=== PATIENT | female | born 1950 | race Caucasian/White ===

== ENCOUNTER 2023-12-15 03:28 | Inpatient (IN) | payer MEDICARE, OTHER, SELFPAY ==
[2023-12-14 21:21] VITALS: BP 185/102
--- NOTE | 2023-12-14 21:35 | ED.GENMED ---
History of Present Illness
General
Chief Complaint: Abdominal Pain
Time Seen by Provider: 12/14/23 21:35
Travel History
Have you had any contact with someone who has COVID-19?: No
Do you have any symptoms of coronavirus? Fever > 100 degrees, chills, cough, shortness of breath, sore throat, loss of taste or smell, muscle aches, or headache?: No
History of Present Illness
History of Present Illness:
HPI: Patient presents with diffuse abdominal pain that started about 5 hours ago. This is associated with sensation of needing to have a bowel movement but she cannot. She also has associated severe nausea/dry heaves but has not vomited. She has
not had pain like this. She had no symptoms earlier in the day.
EXAM:
GENERAL: The patient appears very uncomfortable and rather severe distress
HEENT: Moist oral mucosa
CARDIOVASCULAR: No murmurs, normal heart rate, regular rhythm, No chest wall tenderness
PULMONARY: No respiratory distress, breath sounds are clear and equal
ABDOMEN: Soft with no peritoneal signs, diffuse abdominal tenderness
NEUROLOGIC: Good strength all extremities, no coordination deficits
PSYCHIATRIC: Appropriate mental status, normal insight and judgement
EXTREMITIES: Nontender, no edema, moves all extremities equally
SKIN: No rash, no lesions
TIME OF INITIAL ENCOUNTER: 9:50 PM
NUMBER AND COMPLEXITY OF PROBLEMS ADDRESSED AT THE ENCOUNTER
� Chronic conditions affecting care: High blood pressure
� Acute Exacerbation and/or Progression of Chronic Illness: This is an acute problem
� Differential Diagnosis includes: Bowel perforation, acute cholecystitis, biliary colic, colitis, AAA, appendicitis, bowel obstruction
AMOUNT AND/OR COMPLEXITY OF DATA TO BE REVIEWED AND ANALYZED
� I performed an independent evaluation of and my interpretation is:
EKG:
CT: I personally reviewed CT imaging and agree with radiologist interpretation of internal hernia/closed-loop obstruction
X-rays:
Laboratory Studies: White count slightly elevated at 11.8 but lactate normal at 1.4, chemistries unremarkable
Other:
� Review of other/old records: The patient had knee arthroscopy in 2008
� Clinical information was obtained by an independent historian: I spoke to the at bedside
� Prescriptions/Medications Considered but not given:
� Further testing considered but not performed:
RISK OF COMPLICATIONS AND/OR MORBIDITY OR MORTALITY OF PATIENT MANAGEMENT
� Social determinants of health affecting care: Lives at home
� Discussion with other providers: Discussed with Dr. Watson at about 12 AM�accepts to his service, n.p.o., IV fluids, OR in a.m., NG tube; notified admitting nurse practitioner
� Escalation of care including admission/observation vs risk of discharge considered: The patient appears very uncomfortable upon arrival. She was given IV narcotic analgesia and labs were checked. Reassessed patient at 11:45
PM, pain persists.
Past History
Past History
ED Past Medical History: HTN and Other (osteoporosis)
ED Past Surgical History: Gynecological and Orthopedic (left knee replacement)
Social History
Tobacco: Non-smoker
Personal:
Living: with family
Employment: Employed
Phy Exam
Physical Exam
Physical Exam:
See HPI
Course
Orders/Labs/Results
Orders:
Orders
12/14/23 21:35
0.9% Sodium Chloride 1000 ml [Nss] 1,000 ml IV BOLUS
12/14/23 21:57
Basic Metabolic Panel Urgent
Complete Blood Count/With Diff Urgent
LFT [Kvaxk-Gkzl-Xbuhtgp] Urgent
Lipase Urgent
12/14/23 22:00
HYDROmorphone [Dilaudid] 0.5 mg .ROUTE .STK-MED ONE
HYDROmorphone [Dilaudid] 0.5 mg IV NOW STA
Ondansetron Injectable [Zofran] 4 mg .ROUTE .STK-MED ONE
12/14/23 22:01
Ondansetron Injectable [Zofran] 4 mg IV NOW STA
12/14/23 22:06
Lactic Acid Urgent
12/14/23 22:51
CT Abd/pelvis W Iv Cont Urgent
Comment:
Reason For Exam: severe diffuse abd pain
HYDROmorphone [Dilaudid] 1 mg IV NOW STA
12/15/23 00:13
NG Tube [GI tube insertion- Treatment] ONCE
0.9% Sodium Chloride 250 ml [Nss] 250 ml IV BOLUS
Abnormal Lab Results
12/14/23
21:57
WBC 11.9 H 10^3/uL
(4.8-10.8)
MCHC 32.3 L g/dL
(33.0-37.0)
MPV 11.0 H fL
(7.4-10.4)
Absolute Neuts (auto) 8.4 H 10^3/uL
(1.4-6.5)
Absolute Monos (auto) 0.7 H 10^3/uL
(0.1-0.6)
BUN 25 H mg/dl
(7-17)
Glucose 112 H mg/dl
(70-99)
12/14/23 21:57
12/14/23 21:57
Vital Signs
Initial and Last Documented VS:
Initial Vital Signs
Temp Pulse Resp BP Pulse Ox
97.5 F 86 18 185/102 99
12/14/23 21:21 12/14/23 21:21 12/14/23 21:21 12/14/23 21:21 12/14/23 21:21
Last Documented Vital Signs
Temp Pulse Resp BP Pulse Ox
97.5 F 70 20 121/65 100
12/14/23 21:21 12/15/23 00:15 12/15/23 00:15 12/15/23 00:15 12/15/23 00:15
*Critical Care Note
Total Time (30-74mins, 75-104mins- exclusive of procedures): Not Applicable
ED Attending Note
-
Portions of this chart may have been created with voice recognition software.� Occasional wrong word or��sound alike� substitutions may have occurred due to the inherent limitations of voice recognition software.
Discharge Plan
Departure
Patient Disposition: Admit
Date of Disposition: 12/15/23
Time of Disposition: 00:12
Presentation/result/management discussed w/ accepting /DO: dr watson
Discharge Problem:
Obstructed internal hernia
Prescriptions:
No Action
Ambien
2.5 mg PO DAILY
amlodipine 2.5 MG tablet
2.5 mg PO DAILY
lisinopril-hydrochlorothiazide 1 TAB tablet
1 tab PO DAILY
risedronate [Actonel] 150 MG tablet
150 mg PO MONTHLY
Calcium
DAILY
Vitamin
DAILY
Referrals:
Juventino Silvestre DO [Family Provider] -
Interventions
Interventions:
*Risk Screen - Suicide Last Done: 12/14/23 21:23
*General Assessment Last Done: 12/14/23 21:21
*Neglect/Abuse Screening Last Done: 12/14/23 21:21
ED- Fall Risk Assessment Last Done: 12/14/23 21:45
II-Hkpwbk-Tsoiolzeuv Assessment Last Done: 12/14/23 21:45
[2023-12-14] MEDS: ZOFRAN 4 MG IV (22:02)
[2023-12-14] MEDS: DILAUDID 0.5 MG IV (22:02)
[2023-12-14 22:05] LABS: % Basophils 0.5 % (0-2); % Immature Granulocytes 0.3 % (0-0.5); % Lymphocytes 21.9 % (20.5-51.1); % Monocytes 5.5 % (1.7-9.3); % Neutrophils 70.8 % (42.2-75.2); Absolute Basophils 0.1 10^3/uL (0-0.2); Absolute Eosinophils 0.1 10^3/uL (0-0.7); Absolute Lymphocytes 2.6 10^3/uL (1.2-3.4); Absolute Monocytes 0.7 10^3/uL (0.1-0.6); Absolute Neutrophils 8.4 10^3/uL (1.4-6.5); Hematocrit 41.5 % (37.0-47.0); Hemoglobin 13.4 g/dL (12.0-16.0); Mean Corp Hgb Conc. 32.3 g/dL (33.0-37.0); Mean Corpuscular Hgb 27.9 pg (27.0-31.0); Mean Corpuscular Volume 86.5 fL (81.0-99.0); Nucleated Red Blood Cells % 0 %; Platelet Count 304 10^3/uL (130-400); Red Cell Dist. Width 14.1 % (11.5-14.5); White Blood Cell Count 11.9 10^3/uL (4.8-10.8)
[2023-12-14] MEDS: NSS 1000 IV (22:06)
[2023-12-14 22:22] LABS: ALT (SGPT) 19 U/L (0-35); AST (SGOT) 28 U/L (14-36); Albumin 4.8 g/dl (3.5-5.0); Alkaline Phosphatase 88 U/L (38-126); Blood Urea Nitrogen 25 mg/dl (7-17); Calcium 9.9 mg/dl (8.4-10.2); Carbon Dioxide 26 mmol/L (22-30); Chloride 103 mmol/L (98-107); Direct Bilirubin 0.1 mg/dl (0.0-0.4); Glucose 112 mg/dl (70-99); Lipase 124 U/L (23-300); Potassium 3.7 mmol/L (3.5-5.1); Sodium 135 mmol/L (135-145); Total Bilirubin 1.1 mg/dl (0.2-1.3); Total Protein 7.8 g/dl (6.3-8.2); eGFR 59.86
[2023-12-14 22:25] LABS: Lactic Acid 1.4 mmol/L (0.7-2.0)
[2023-12-14] MEDS: DILAUDID 1 MG IV (22:53)
[2023-12-15] VITALS (14 sets, daily range): BP systolic 119–148; BP diastolic 56–96; BMI 32.7; BMI 30.3
[2023-12-15] MEDS: LR 1000 IV (01:50)
--- NOTE | 2023-12-15 02:57 | CON.GS ---
Consultation
-
Requesting Provider: Sanford
Performing Provider: Walter
Reason for Consultation: Closed loop SBO
Medical History
-
Chief Complaint: Abd pain
History of Present Illness:
73F with acute onset mid abdominal pain described as severe/debilitating that began around 4PM this afternoon. Denies f/c. Endorses severe nausea/retching, denies emesis. Feels she needs to pass flatus/stool but cannot. NGT in ED reportedly with
750cc out.
Past Medical History
Past Medical History: HTN and Other (osteoperosis)
Past Surgical History: Gynecological (tubal) and Orthopedic
Social History
Tobacco: Non-Smoker
Personal:
Living: With Family
Family History
Family History: Reviewed & Noncontributory
Allergies / Home Medications
Allergy/AdvReac Type Severity Reaction Status Date / Time
No Known Allergies Allergy Unverified 10/16/08 13:36
Medication Instructions Recorded Confirmed Type
Ambien 2.5 mg PO DAILY 10/16/08 10/16/08 History
Calcium DAILY 10/16/08 10/16/08 History
Vitamin DAILY 10/16/08 10/16/08 History
amlodipine 2.5 mg tablet 2.5 mg PO DAILY 10/16/08 10/16/08 History
lisinopril 20 1 tab PO DAILY 10/16/08 10/16/08 History
mg-hydrochlorothiazide 25 mg tablet
risedronate 150 mg tablet (Actonel) 150 mg PO MONTHLY 10/16/08 10/16/08 History
Review of Systems
-
A 10 point review of systems was completed, and was negative except as per HPI.
Physical Exam
Vital Signs
Temp Pulse Resp BP Pulse Ox
97.5 F 70 20 137/80 100
12/14/23 21:21 12/15/23 00:15 12/15/23 00:15 12/15/23 01:01 12/15/23 00:15
12/13/23 12/14/23 12/15/23
06:59 06:59 06:59
Actual Weight 86.3 kg
Body Mass Index (BMI) 32.7
Lab Results
12/14/23 21:57
12/15/23 06:00
WBC 11.9 10^3/uL (4.8-10.8) H 12/14/23 21:57
Hgb 13.4 g/dL (12.0-16.0) 12/14/23 21:57
Hct 41.5 % (37.0-47.0) 12/14/23 21:57
Plt Count 304 10^3/uL (130-400) 12/14/23 21:57
Abs Immat Gran (auto) 0.0 10^3/uL (0-0.05) 12/14/23 21:57
Neutrophils % 70.8 % (42.2-75.2) 12/14/23 21:57
Physical Exam
General: Other (moderate distress)
HEENT: Normocephalic
GI: Tender (tt light perc with guarding)
Skin: Warm and Dry
Neuro: AO x 3
Data Reviewed
-
CT Scan: Image Personally Visualized and interpreted, Discussed with Physician, Discussed with Patient and Discussed with Family
Labs: Labs Reviewed by me and Discussed with Physician
Assessment / Plan
-
73F with closed loop SBO
AFVSS, generalized peritonitis on exam
Labs OK
CT c/w closed loop SBO with bowel wall and mesenteric edema and surrounding free fluid of the affected loop and dual transition points at the right mid abdomen, appears to be a band adhesion/internal hernia
Plan:
OCTOR for dx lap, possible ex lap, possible SBR
D/w pt and . Informed consent obtained. All ?s answered.
--- NOTE | 2023-12-15 03:03 | W.IMMPOSTOP ---
Surgical Immed Post Op Note
-
Primary Surgeon: Walter
Pre-op Diagnosis: Closed loop SBO
Post-op Diagnosis: Same
Procedure Performed: Diagnostic laparoscopy, lysis of adhesions
Anesthesia Type: GETA
Specimen / Cultures: None
Estimated Blood Loss: 5cc
Complications: None immediate
Operative Findings: Roughly 50cm loop of hemorrhagic small bowel tethered by a single omental band adhesion with hemorrhagic free fluid, no necrosis was evident. Band was lysed and bowel observed for several minutes with improving appearance.
Peristalsis was visible when bowel was gasped gently with atraumatic graspers. All bowel was viable and none was resected.
--- NOTE | 2023-12-15 03:07 | OR.RPT ---
Operative Report
Operative Report
Primary Surgeon: Walter
Pre-op Diagnosis: Closed loop SBO
Post-op Diagnosis: Same
Procedure Performed: Diagnostic laparoscopy, lysis of adhesions
Anesthesia Type: GETA
Specimen / Cultures: None
Estimated Blood Loss: 5cc
Complications: None immediate
Operative Findings: Roughly 50cm loop of hemorrhagic small bowel tethered by a single omental band adhesion with hemorrhagic free fluid, no necrosis was evident. Band was lysed and bowel observed for several minutes with improving appearance.
Peristalsis was visible when bowel was gasped gently with atraumatic graspers. All bowel was viable and none was resected.
Date of Surgery: 12/15/23
Indications: This 73F developed generalized peritonitis with imaging findings consistent with closed loop small bowel obstruction. Emergent diagnostic laparoscopy with possible exploratory laparotomy and possible bowel resection was planned.
Nasogastric tube was placed in the Emergency Department.
Description of procedure: The patient was placed on the operating table in the supine position. General anesthesia was induced. A time-out was completed verifying correct patient, procedure, site, positioning, and special equipment prior to
beginning this procedure. The abdomen was prepped and draped in the usual sterile fashion. A stab incision was made in left upper quadrant and the Veress needle was inserted. Proper position was confirmed by aspiration and saline meniscus test. The
abdomen was insufflated with carbon dioxide to a pressure of 12 mmHg. The patient tolerated insufflation well.
A 5mm optical trocar was then inserted at the left lower quadrant. The laparoscope was inserted and the abdomen inspected. No injuries from initial trocar placement or Veress needle insertion were noted. Additional 5mm trocars were then inserted a
hand's breadth above and below the initial trocar under direct vision. The abdomen was inspected and a loop of hemorrhagic small bowel was noted. This bowel was carefully traced to a transition point in the mid right abdomen. The table was
positioned left side down to improve exposure. A band of omentum was pinning this loop down at two adjacent points. The omental band was lysed with the ligasure device and the bowel was gently run for several cm in both directions. The affected
segment was then observed for several minutes. It immediately began improving in color. This segment of bowel was gently grasped with an atraumatic grasper at several points along the entire affected length and at each point peristalsis was
observed. All free fluid was suctioned. The trocars were removed under direct vision and noted to be hemostatic. The laparoscope was withdrawn and the abdomen was allowed to collapse. The skin was closed with subcuticular sutures of 4-0 monocryl and
topical skin adhesive.
The patient tolerated the procedure well and was taken to the postanesthesia care unit in stable condition.
[2023-12-15] MEDS: D5/0.45%NSS with KCL 20 MEQ 1000 IV ×3 (03:28→23:21)
[2023-12-15] MEDS: NORVASC PO (04:14)
--- NOTE | 2023-12-15 04:36 | PTCARENOTE ---
pt admitted to 2S. VSS. afebrile. no c/o abd pain. AAOX3, pleasant. Regular heart sounds. Lungs WNL. Abd round , obese and tender. NG tube in place. Rt nare. pt appears comfortable in bed and call bermudez with reach.
--- NOTE | 2023-12-15 08:30 | VATNOTE ---
Called by pt's PCN to assess L arm infiltrate. Upon assessment, pt's L arm down into hand very edematous. Pt's ID bracelet very tight over hand, probable cause of hand swelling, and was cut off. L forearm swollen from IV infiltrate. IV was D/C'd and
arm elevated on 2 pillows. Pt's IV restarted in R arm. Will continue to monitor.
[2023-12-15] MEDS: PROTONIX IV 40 MG IV (08:49)
[2023-12-15] MEDS: NSS (PRESERVATIVE FREE) 10 ML IV (08:49)
--- NOTE | 2023-12-15 13:22 | W.PN.GS2 ---
Today's Communication / Plan
-
NPO/IVF/NGT
Assessment / Plan
-
73F POD0 s/p dx lap with KENYON for closed loop SBO
Clinically improving, no bowel function yet, minimal NGT output that is clear
Plan:
NPO/IVF/NGT
Monitor for ROBF
PRN pain meds
PRN antiemetics
DVT ppx
Ambulate
Rpt labs in the am
Subjective Data
-
Date of Service: December 15, 2023
AFVSS, pain resolved, denies n/v with NGT to suction, denies flatus/BM
Objective Data
-
Intake and Output
12/14/23 12/15/23 12/16/23
06:59 06:59 06:59
Intake Total 450 / 450
Balance 450 / 450
Intake:
IV fluids (Total) 450 / 450
normosol 50 / 50
Other:
Number of approximated LARGE 1
amounts of urine
Vital Signs
Temp Pulse Resp BP Pulse Ox
98.2 F 76 16 119/64 97
12/15/23 11:45 12/15/23 11:45 12/15/23 11:45 12/15/23 11:45 12/15/23 11:45
Lab Results
12/14/23 21:57
12/15/23 06:00
Calcium Cancelled 12/15/23 06:00
Total Bilirubin Cancelled 12/15/23 06:00
Direct Bilirubin 0.1 mg/dl (0.0-0.4) 12/14/23 21:57
AST Cancelled 12/15/23 06:00
ALT Cancelled 12/15/23 06:00
Alkaline Phosphatase Cancelled 12/15/23 06:00
Total Protein Cancelled 12/15/23 06:00
Albumin Cancelled 12/15/23 06:00
Physical Exam
-
Gen: NAD
Abd: soft, mod tp to mid abdomen, mild ecchymosis surrounding lap sites, incisions cdi
[2023-12-15] MEDS: LOVENOX 40 MG SC (18:16)
[2023-12-15] MEDS: TORADOL 10 MG IV (18:16)
[2023-12-16 03:40] VITALS: BP 132/72
[2023-12-16 05:04] LABS: Hematocrit 32.4 % (37.0-47.0); Hemoglobin 10.4 g/dL (12.0-16.0); Mean Corp Hgb Conc. 32.1 g/dL (33.0-37.0); Mean Corpuscular Hgb 28.1 pg (27.0-31.0); Mean Corpuscular Volume 87.6 fL (81.0-99.0); Platelet Count 220 10^3/uL (130-400); Red Cell Dist. Width 14.4 % (11.5-14.5); White Blood Cell Count 9.7 10^3/uL (4.8-10.8)
[2023-12-16 05:54] LABS: Blood Urea Nitrogen 21 mg/dl (7-17); Calcium 8.2 mg/dl (8.4-10.2); Carbon Dioxide 26 mmol/L (22-30); Chloride 107 mmol/L (98-107); Estimated Creatinine Clearance 52 ml/min; Glucose 103 mg/dl (70-99); Phosphorus 3.3 mg/dl (2.5-4.5); Potassium 3.9 mmol/L (3.5-5.1); Sodium 135 mmol/L (135-145); eGFR 59.86
--- NOTE | 2023-12-16 05:58 | PTCARENOTE ---
Shala did not need any pain medication overnight. Lap sites [facility], no drainage, small amount of ecchymosis/bruising. NGT to LIWS with 200mL output; irrigated x2. Denies flatus, +hypoactive bowel sounds. IVF continue. Tolerating ice chips. Up to BR
with standby assist. Denies any nausea, dizziness, sob, cp or palpitations. Call bermudez within reach. Pt calls appropriately.
[2023-12-16 07:16] VITALS: BP 139/64
--- NOTE | 2023-12-16 07:54 | CM ---
met with patient and her spouse at bedside.patient lives [facility] with [address],her bed and bath is on the second level,she amb i and is i with her adl.her edyta is poa.patient sees dr bladimir pop for her pcp and she uses
[facility] on [id number],patient has had dhvn in pastt following knee surgery.
patient is adm with sbo and is sp exp lap/ting.she is npo,has ngt to low suction.patient states her abd pain has resolved.patient has denied any needs when dc home.
Plan: discharge home with no needs.
--- NOTE | 2023-12-16 08:34 | VATNOTE ---
Left hand and arm with +2 swelling from previous infiltrate. Pt states it has decreased in size.
--- NOTE | 2023-12-16 09:13 | W.PN.GS2 ---
Today's Communication / Plan
-
`
Assessment / Plan
-
73F POD 1 s/p dx lap with KENYON for closed loop SBO
AFVSS
nonbilious NGT output and + flatus
Plan:
clear liquid diet/IVF
PRN pain meds
PRN antiemetics
DVT ppx
Ambulate
Subjective Data
-
Date of Service: December 16, 2023
pt seen and examined
started passing some flatus overnight
no nausea
left sided post op pain at surgical sites - mild
Objective Data
-
Intake and Output
12/15/23 12/16/23 12/17/23
06:59 06:59 06:59
Intake Total 450 / 450 2170 / 2170
Output Total 635 / 635
Balance 450 / 450 1535 / 1535
Intake:
Oral fluids 120 / 120
IV fluids (Total) 450 / 450 1900 / 1900
normosol 50 / 50
Amount instilled into GI Tube ( 150 / 150
Total)
[place] Sump 150 / 150
Output:
Gastrointestinal tube output ( 335 / 335
Total)
[place] Sump 335 / 335
Urine, Voided 300 / 300
Other:
Number of approximated MODERATE 2
amounts of urine
Number of approximated LARGE 1
amounts of urine
Vital Signs
Temp Pulse Resp BP Pulse Ox
97.5 F 75 16 139/64 99
12/16/23 07:16 12/16/23 07:16 12/16/23 07:16 12/16/23 07:16 12/16/23 07:16
Lab Results
12/16/23 04:39
12/16/23 04:39
Calcium 8.2 mg/dl (8.4-10.2) L D 12/16/23 04:39
Phosphorus 3.3 mg/dl (2.5-4.5) 12/16/23 04:39
Magnesium 2.0 mg/dl (1.6-2.3) 12/16/23 04:39
Total Bilirubin Cancelled 12/15/23 06:00
Direct Bilirubin 0.1 mg/dl (0.0-0.4) 12/14/23 21:57
AST Cancelled 12/15/23 06:00
ALT Cancelled 12/15/23 06:00
Alkaline Phosphatase Cancelled 12/15/23 06:00
Total Protein Cancelled 12/15/23 06:00
Albumin Cancelled 12/15/23 06:00
Physical Exam
-
NAD AAOx3
ABD: soft, nondistended, mild TTP at incision sites, glue dressings
no generalized tenderness on palpation
[2023-12-16] MEDS: NORVASC 2.5 MG PO (09:28)
[2023-12-16] MEDS: PROTONIX IV 40 MG IV (09:29)
[2023-12-16] MEDS: NSS (PRESERVATIVE FREE) 10 ML IV (09:29)
[2023-12-16] MEDS: D5/0.45%NSS with KCL 20 MEQ 1000 IV ×2 (09:30→20:45)
[2023-12-16 14:57] VITALS: BP 160/77
--- NOTE | 2023-12-16 15:45 | CM ---
sp exp lap/ting for sbo,small amt non bilious output.passing gas,cont ivf clear liquids,iv protonx,dilaudid prn for pain.
Plan:discharge home with no needs when stable.
[2023-12-16] MEDS: LOVENOX 40 MG SC (17:25)
[2023-12-16 19:23] LABS: Hepatitis C Antibody Negative (Negative)
[2023-12-16] MEDS: TYLENOL 650 MG PO (20:44)
[2023-12-16 23:00] VITALS: BP 122/59
[2023-12-17] MEDS: D5/0.45%NSS with KCL 20 MEQ 1000 IV (05:34)
[2023-12-17 08:00] VITALS: BP 163/86
--- NOTE | 2023-12-17 08:42 | VATNOTE ---
Reported left arm infiltrate resolved, no swelling noted.
[2023-12-17 08:50] LABS: Hemoglobin 10.4 g/dL (12.0-16.0); Mean Corp Hgb Conc. 32.5 g/dL (33.0-37.0); Mean Corpuscular Hgb 28.2 pg (27.0-31.0); Mean Corpuscular Volume 86.7 fL (81.0-99.0); Mean Platelet Volume 11.1 fL (7.4-10.4); Platelet Count 218 10^3/uL (130-400); Red Blood Cell Count 3.69 10^6/uL (4.20-5.40); Red Cell Dist. Width 14.5 % (11.5-14.5); White Blood Cell Count 6.1 10^3/uL (4.8-10.8)
--- NOTE | 2023-12-17 08:52 | W.PN.GS2 ---
Addendum entered and electronically signed by Trino Banks MD 12/17/23 09:46:
Patient seen and examined. Agree with assessment plan as documented below.
No complaints. Feels well. Tolerated clears without nausea, vomiting, worsening abdominal pain or distention. Passing flatus, no BM. Minimal ambulation. Voiding.
Gen: NAD
Abd: soft, NT/ND, non-peritoneal, incisions c/d/i - no erythema, ecchymosis or drainage
73F POD 2 s/p dx lap with KENYON for closed loop SBO
AFVSS
+flatus, no BM, tolerating clears
BMP pending, CBC stable
Plan:
-- Advance to FLD
-- D/C IVF
-- PRN pain meds
-- PRN antiemetics
-- DVT ppx
-- Ambulate/IS while awake
-- Lovenox 40mg sq for VTE ppx
Original Note:
Today's Communication / Plan
-
Advance to FLD
Assessment / Plan
-
73F POD 2 s/p dx lap with KENYON for closed loop SBO
AFVSS
+flatus, tolerating clears
BMP pending, CBC stable
Plan:
Advance to FLD
D/C IVF
PRN pain meds
PRN antiemetics
DVT ppx
Ambulate/IS while awake
Lovenox 40mg sq for VTE ppx
Subjective Data
-
Date of Service: December 17, 2023
Patient seen and examined at bedside with Dr. Banks. Denies n/v. Tolerating clear liquids. Passing flatus.
Objective Data
-
Intake and Output
12/16/23 12/17/23 12/18/23
06:59 06:59 06:59
Intake Total 2170 / 2170 1909 / 191
Output Total 635 / 635 880 / 880
Balance 1535 / 1535 1030 / 1030
Intake:
Oral fluids 120 / 120 680 / 680
IV fluids (Total) 1900 / 1900 1200 / 1200
Amount instilled into GI Tube ( 150 / 150 30 / 30
Total)
[place] Sump 150 / 150 30 / 30
Output:
Gastrointestinal tube output ( 335 / 335
Total)
[place] Sump 335 / 335
Urine, Voided 300 / 300 880 / 880
Other:
Number of approximated MODERATE 2
amounts of urine
Vital Signs
Temp Pulse Resp BP Pulse Ox
98.1 F 75 14 122/59 96
12/16/23 23:00 12/16/23 23:00 12/16/23 23:00 12/16/23 23:00 12/16/23 23:00
Lab Results
12/17/23 08:13
Calcium 8.2 mg/dl (8.4-10.2) L D 12/16/23 04:39
Phosphorus 3.3 mg/dl (2.5-4.5) 12/16/23 04:39
Magnesium 2.0 mg/dl (1.6-2.3) 12/16/23 04:39
Total Bilirubin Cancelled 12/15/23 06:00
Direct Bilirubin 0.1 mg/dl (0.0-0.4) 12/14/23 21:57
AST Cancelled 12/15/23 06:00
ALT Cancelled 12/15/23 06:00
Alkaline Phosphatase Cancelled 12/15/23 06:00
Total Protein Cancelled 12/15/23 06:00
Albumin Cancelled 12/15/23 06:00
Physical Exam
-
NAD AAOx3
ABD: soft, nondistended, mild TTP at incision sites, glue dressings
[2023-12-17] MEDS: NSS (PRESERVATIVE FREE) 10 ML IV (09:04)
[2023-12-17] MEDS: PROTONIX IV 40 MG IV (09:04)
[2023-12-17 09:06] LABS: Blood Urea Nitrogen 14 mg/dl (7-17); Calcium 8.6 mg/dl (8.4-10.2); Carbon Dioxide 27 mmol/L (22-30); Chloride 107 mmol/L (98-107); Estimated Creatinine Clearance 58 ml/min; Glucose 90 mg/dl (70-99); Potassium 4.2 mmol/L (3.5-5.1); Sodium 139 mmol/L (135-145); eGFR > 60.00
[2023-12-17] MEDS: ZESTRIL 20 MG PO (12:56)
[2023-12-17] MEDS: ORETIC 12.5 MG PO (12:57)
--- NOTE | 2023-12-17 15:44 | CM ---
met with patient at bedside.she is tolerating full liquids,will advance to low resident diet,she is ambulating in hallways.she has little to no abd pain.
plan:home with no needs.
[2023-12-17 16:00] VITALS: BP 187/94
[2023-12-17] MEDS: APRESOLINE 5 MG IV (17:40)
[2023-12-17] MEDS: LOVENOX 40 MG SC (17:41)
--- NOTE | 2023-12-17 21:07 | VATNOTE ---
removed current iv site from right wrist due to leaking. Pt strongly did not want a new IV started. Discussed with pt. and PCN. Due to high bp today, pt agreed to VAT RN attempt. Unsuccessful x1. Pt has poor vasculature & had previous left arm
infiltrate and right wrist fx from last year. NO access at this time.
[2023-12-17 22:55] VITALS: BP 165/79
[2023-12-18 07:41] VITALS: BP 161/84
[2023-12-18] MEDS: ZESTRIL 20 MG PO (08:17)
[2023-12-18] MEDS: NSS (PRESERVATIVE FREE) IV (08:17)
[2023-12-18] MEDS: PROTONIX IV IV (08:17)
[2023-12-18] MEDS: ORETIC 12.5 MG PO (08:17)
[2023-12-18 08:29] LABS: Hemoglobin 10.3 g/dL (12.0-16.0); Mean Corp Hgb Conc. 33.2 g/dL (33.0-37.0); Mean Corpuscular Hgb 28.5 pg (27.0-31.0); Mean Corpuscular Volume 85.9 fL (81.0-99.0); Mean Platelet Volume 11.5 fL (7.4-10.4); Platelet Count 225 10^3/uL (130-400); Red Blood Cell Count 3.61 10^6/uL (4.20-5.40); Red Cell Dist. Width 14.3 % (11.5-14.5); White Blood Cell Count 6.3 10^3/uL (4.8-10.8)
[2023-12-18 09:17] LABS: Blood Urea Nitrogen 13 mg/dl (7-17); Calcium 8.8 mg/dl (8.4-10.2); Carbon Dioxide 26 mmol/L (22-30); Chloride 106 mmol/L (98-107); Estimated Creatinine Clearance 65 ml/min; Glucose 77 mg/dl (70-99); Potassium 4.2 mmol/L (3.5-5.1); Sodium 139 mmol/L (135-145); eGFR > 60.00
--- NOTE | 2023-12-18 12:31 | W.PN.GS2 ---
Today's Communication / Plan
-
Advance diet
Assessment / Plan
-
73F POD 2 s/p dx lap with KENYON for closed loop SBO
AFVSS
+flatus, tolerating fulls
Labs stable post op
Plan:
Advance to LRD
PRN pain meds
Continue home meds
Ambulate/IS while awake
Lovenox 40mg sq for VTE ppx
Subjective Data
-
Date of Service: December 18, 2023
Patient seen and examined at bedside with Dr. Jaime. Questions addressed. Tolerating liquids. Passing flatus, no stool as of yet. Denies n/v.
Objective Data
-
Intake and Output
12/17/23 12/18/23 12/19/23
06:59 06:59 06:59
Intake Total 1910 / 1910 480 / 480
Output Total 880 / 880
Balance 1030 / 1030 480 / 480
Intake:
Oral fluids 680 / 680 480 / 480
IV fluids (Total) 1200 / 1200
Amount instilled into GI Tube ( 30 / 30
Total)
[place] Sump 30 / 30
Output:
Urine, Voided 880 / 880
Other:
Number of approximated MODERATE 3
amounts of urine
Vital Signs
Temp Pulse Resp BP Pulse Ox
98 F 76 18 161/84 96
12/18/23 07:41 12/18/23 07:41 12/18/23 07:41 12/18/23 07:41 12/18/23 07:41
Lab Results
12/18/23 06:25
12/18/23 06:25
Calcium 8.8 mg/dl (8.4-10.2) 12/18/23 06:25
Phosphorus 3.3 mg/dl (2.5-4.5) 12/16/23 04:39
Magnesium 2.0 mg/dl (1.6-2.3) 12/16/23 04:39
Total Bilirubin Cancelled 12/15/23 06:00
Direct Bilirubin 0.1 mg/dl (0.0-0.4) 12/14/23 21:57
AST Cancelled 12/15/23 06:00
ALT Cancelled 12/15/23 06:00
Alkaline Phosphatase Cancelled 12/15/23 06:00
Total Protein Cancelled 12/15/23 06:00
Albumin Cancelled 12/15/23 06:00
Physical Exam
-
NAD AAOx3
ABD: soft, nondistended, mild TTP at incision sites, glue dressings intact with well approximated incisions/no erythema. Ecchymosis noted.
--- NOTE | 2023-12-18 14:36 | W.DCSUMMARY ---
Discharge Summary
Discharge Data
Date of Admission: 12/15/23
Date of Discharge: 12/18/23
-
Pending Results: No
Hospital Course
Ms Guerrero is a 73 yo female who presented through the ED with severe mid abdominal pain with nausea and retching. CT imaging in the ED consistent with closed loop obstruction. NGT was placed in the ED for decompression and the patient was taken
emergently to the OR for laparoscopic lysis of adhesions. She tolerated the procedure well with return of bowel function post operatively. Diet was able to be advanced and well tolerated. She had very little discomfort post operatively.
Discharge Plan
-
Patient Disposition: Home (Routine Discharge)
Discharge Diagnosis/Procedures: Small bowel obstruction with laparoscopic lysis of adhesions
Condition: Good
Diet: Low Fiber
Activity: No strenuous activity
Additional Activity: Do not lift more than 15 pounds for the next 2-3 weeks
Driving Restrictions: Wait until comfortable twisting/off narcotics
Bathing Restrictions: OK to Shower
Wound Care: Ok to shower and wash your incisions with soap and water. Avoid scrubbing or picking off the glue
Activity Restrictions/Additional Instructions:
Please call your surgeon if you have worsening abdominal pain, nausea with vomiting or a fever >100.5.
Referrals:
Juventino Silvestre DO [Family Provider] -
Klaus Watson MD [Active] - in two to four weeks
Prescriptions:
New
acetaminophen [acetaminophen] 325 mg tablet
650 mg PO Q4HPRN PRN (Reason: mild pain) Qty: 1 0RF
ibuprofen 200 mg tablet
400 - 600 mg PO Q6HPRN PRN (Reason: moderate pain) Qty: 1 0RF
Continued
Ambien
5 mg PO PRN PRN (Reason: sleep problem)
Vitamin D3
PO DAILY
hydrochlorothiazide
12.5 mg PO DAILY
lisinopril
20 mg PO DAILY
Discharge Orders:
Discharge Patient (As Directed); Ordered 12/18/23
Ordered By: Sarina Vásquez
--- NOTE | 2023-12-18 15:47 | CM ---
Reviewed the chart notes and spoke with the patient at the bedside. IMM signed and placed on the chart. The patient is being discharged to home today with no additional needs being identified. The patient's spouse will provide transportation. CM
continues to be available to patient/family and is monitoring medical plan for needs at discharge.
Plan: Discharge to home today.
[2023-12-18 15:55] VITALS: BP 178/91
== END 2023-12-18 16:46 | disposition home or self-care (01) | DRG 337 ==
LOC: 2 SOUTH 03:28
PROVIDERS: Registered Nurse; ADMITTING PHYSICIAN Surgery; EMERGENCY PHYSICIAN Emergency Medicine; FAMILY PHYSICIAN Family Medicine
PROC: 0DN84ZZ Release Small Intestine, Percutaneous Endoscopic Approach (ICD-10-PCS; 2023-12-15)
DX: K56.50 Intestinal adhesions [bands], unspecified as to partial versus complete obstruction (principal); I10 Essential (primary) hypertension; M81.0 Age-related osteoporosis without current pathological fracture; E66.9 Obesity, unspecified; Z68.32 Body mass index [BMI] 32.0-32.9, adult
CPT/HCPCS: 74177; 80048; 80076; 83605; 83690; 83735; 84100; 85025; 85027; 86803; 96361; 96374; 96375; 96376; 99285; Q9967

== ENCOUNTER → 2024-07-10 06:33 | Day surgery (SDC) | payer MEDICARE, OTHER, SELFPAY | LOC: GI 06:33 | PROVIDERS: ATTENDING PHYSICIAN Internal Medicine Gastroenterology; FAMILY PHYSICIAN Family Medicine | DX: K25.9 Gastric ulcer, unspecified as acute or chronic, without hemorrhage or perforation (principal); K29.70 Gastritis, unspecified, without bleeding; R12 Heartburn | CPT/HCPCS: 43239; 88305; 88342 ==

== ENCOUNTER → 2024-10-28 12:07 | Outpatient (REF) | payer MEDICARE, OTHER, SELFPAY | LOC: PAVMRI 12:07 | PROVIDERS: ATTENDING PHYSICIAN Specialist; FAMILY PHYSICIAN Family Medicine | DX: M25.511 Pain in right shoulder (principal); M19.011 Primary osteoarthritis, right shoulder | CPT/HCPCS: 73221 ==

== ENCOUNTER 2024-10-30 06:22 | Day surgery (SDC) | payer MEDICARE, OTHER, SELFPAY | END 2024-10-30 12:01 | disposition home or self-care (01) | LOC: GI 06:22 | PROVIDERS: ATTENDING PHYSICIAN Internal Medicine Gastroenterology; FAMILY PHYSICIAN Family Medicine | DX: K29.70 Gastritis, unspecified, without bleeding (principal); K25.9 Gastric ulcer, unspecified as acute or chronic, without hemorrhage or perforation; K31.89 Other diseases of stomach and duodenum | CPT/HCPCS: 43239; 88305; 88342 ==

== ENCOUNTER → 2025-01-02 11:10 | Outpatient (REF) | payer OTHER, SELFPAY ==
[2025-01-02 12:31] LABS: Rubella Positive
[2025-01-03 12:28] LABS: Mumps Virus IgG Positive; Rubeola (Measles) IgG Positive; Varicella Zoster IgG (VZV) Positive
[2025-01-04 06:44] LABS: Quantiferon NIL 0.02 IU/mL; Quantiferon TB Gold Plus Negative (Negative)
== END ==
LOC: OHS 11:10
PROVIDERS: ATTENDING PHYSICIAN Nurse Practitioner Family
DX: Z23 Encounter for immunization (principal)
CPT/HCPCS: 36415; 86480; 86735; 86762; 86765; 86787

== ENCOUNTER → 2025-04-12 12:29 | Outpatient (REF) | payer MEDICARE, OTHER, SELFPAY | LOC: HWWDC 12:29 | PROVIDERS: ATTENDING PHYSICIAN Family Medicine | DX: Z12.31 Encounter for screening mammogram for malignant neoplasm of breast (principal) | CPT/HCPCS: 77063; 77067 ==

== ENCOUNTER → 2025-04-20 09:27 | Outpatient (REF) | payer MEDICARE, OTHER, SELFPAY | LOC: WDC 09:27 | PROVIDERS: ATTENDING PHYSICIAN Family Medicine | DX: R92.8 Other abnormal and inconclusive findings on diagnostic imaging of breast (principal) | CPT/HCPCS: 76642 ==

== ENCOUNTER → 2025-06-08 13:25 | Outpatient (REF) | payer MEDICARE, OTHER, SELFPAY | LOC: HWRAD 13:25 | PROVIDERS: ATTENDING PHYSICIAN Family Medicine | DX: M85.80 Other specified disorders of bone density and structure, unspecified site (principal); M81.0 Age-related osteoporosis without current pathological fracture | CPT/HCPCS: 77080 ==

== ENCOUNTER 2025-09-05 09:34 | Emergency (ER) | payer MEDICARE, OTHER, SELFPAY ==
[2025-09-05 09:40] VITALS: BP 176/88
[2025-09-05 09:54] LABS: Hematocrit 36.7 % (37.0-47.0); Hemoglobin 12.0 g/dL (12.0-16.0); Mean Corp Hgb Conc. 32.7 g/dL (33.0-37.0); Mean Corpuscular Volume 85.0 fL (81.0-99.0); Nucleated Red Blood Cells % 0 %; Platelet Count 273 10^3/uL (130-400); Red Cell Dist. Width 13.7 % (11.5-14.5)
[2025-09-05 10:35] LABS: ALT (SGPT) 18 U/L (0-35); AST (SGOT) 26 U/L (14-36); Albumin 4.2 g/dl (3.5-5.0); Alkaline Phosphatase 66 U/L (38-126); Blood Urea Nitrogen 26 mg/dl (7-17); Calcium 9.3 mg/dl (8.4-10.2); Carbon Dioxide 25 mmol/L (22-30); Chloride 105 mmol/L (98-107); Glucose 94 mg/dl (70-99); Potassium 3.9 mmol/L (3.5-5.1); Sodium 136 mmol/L (135-145); Total Protein 6.9 g/dl (6.3-8.2); eGFR 59.12
--- NOTE | 2025-09-05 12:04 | ED.GENMED ---
History of Present Illness
General
Chief Complaint: Fainting/Passed Out
Source: patient
Exam Limitations: none
Time Seen by Provider: 09/05/25 12:03
History of Present Illness
History of Present Illness:
75-year-old female presents via EMS after syncopal episode at home. She woke up, first thing this morning feeling lightheaded. She laid back down try to get up again was feeling weak. She had a descend the stairs on her bottom. She stood up at
the bottom of the steps to go over to the couch and she passed out. Her found her on the ground. She denied any preceding chest pain. There is no shortness of breath although she does note over the past 2 to 3 weeks she has felt very
fatigued. No fevers or vomiting. No diarrhea. No urinary symptoms. She states drinking well. No other complaints
Past History
Past History
ED Past Medical History: HTN and Other (osteoporosis)
ED Past Surgical History: Gynecological and Orthopedic (left knee replacement)
Social History
Tobacco: Non-smoker
Personal:
Living: with family
Employment: Employed
Phy Exam
Physical Exam
Physical Exam:
General: Well-appearing female no acute distress
HEENT: Normal cephalic atraumatic
Heart: Regular rate and rhythm
Lungs: Clear no wheeze
Abdomen is soft nontender
Extremities: No cyanosis or edema
Course
Orders/Labs/Results
Orders:
Orders
09/05/25 09:42
Electrocardiogram (*1) Urgent
Reason for Study: Syncope
09/05/25 09:43
EKG- Treatment ONCE
09/05/25 09:46
Complete Blood Count/With Diff Urgent
Comprehensive Metabolic Panel Urgent
TSH Reflex To Free T4 Urgent
Comment: ADD ON
09/05/25 12:23
Add On- LAB Urgent
Tests Added?: tsh reflext to t4
Orthostatic VS- Treatment ONCE
Abnormal Lab Results
09/05/25
09:46
Hct 36.7 L %
(37.0-47.0)
MCHC 32.7 L g/dL
(33.0-37.0)
MPV 10.8 H fL
(7.4-10.4)
BUN 26 H mg/dl
(7-17)
09/05/25 09:46
09/05/25 09:46
Vital Signs
Initial and Last Documented VS:
Initial Vital Signs
Temp Pulse Resp BP Pulse Ox
98.3 F 74 16 176/88 98
09/05/25 09:40 09/05/25 09:40 09/05/25 09:40 09/05/25 09:40 09/05/25 09:40
Last Documented Vital Signs
Temp Pulse Resp BP Pulse Ox
98.3 F 77 16 132/65 98
09/05/25 09:40 09/05/25 14:08 09/05/25 14:08 09/05/25 14:08 09/05/25 14:08
MDM/Problems Addressed
Differential Diagnosis Includes:
Patient presents after syncope. Question orthostatic hypotension versus vasovagal episode versus arrhythmia or anemia. No risk factors for PE no chest pain.
EKG shows sinus rhythm with a right bundle branch block no ischemic changes. Check labs add TSH given fatigue. Offered her hydration however patient declined stating that she is feeling better and every time she received saline through the IV her
blood pressure raises and she swells. Will provide p.o. fluids and check orthostatics and keep her on the monitor
*Pulse Oximetry
SaO2: 98
Oxygen Mode of Delivery: Room air
Patient hypoxic: no
*Critical Care Note
Total Time (30-74mins, 75-104mins- exclusive of procedures): Not Applicable
Update Note
Update Note:
EKG shows sinus rhythm with a rate of 71 no ischemic changes.
Orthostatic vital signs without significant finding. Patient has been ambulatory here walk to the bathroom without any further lightheadedness or near. No arrhythmias on monitor. I suspect orthostasis versus vasovagal event today. Stable for
discharge with follow-up. She has a unit leader she will follow-up
ED Attending Note
-
Portions of this chart may have been created with voice recognition software.� Occasional wrong word or��sound alike� substitutions may have occurred due to the inherent limitations of voice recognition software.
Discharge Plan
Departure
Patient Disposition: Home (Routine Discharge)
Date of Disposition: 09/05/25
Time of Disposition: 14:21
Patient with high blood pressure during this ER visit?: No
Discharge Problem:
Syncope
Instructions: Syncope (Fainting) (DC)
Prescriptions:
No Action
zolpidem [Ambien] 5 mg Tablet
5 mg PO HS PRN (Reason: sleep) Qty: 0
lisinopril 20 mg Tablet
20 mg PO DAILY Qty: 0
hydrochlorothiazide 12.5 mg Tablet
12.5 mg PO DAILY Qty: 0
acetaminophen [acetaminophen] 325 mg tablet
650 mg PO Q4HPRN PRN (Reason: mild pain) Qty: 1 0RF
Referrals:
Juventino Silvestre, DO [Family Provider, Family Practice]
Activity Restrictions/Additional Instructions:
Stay hydrated. Follow-up with your cardiology team peer return if worse otherwise.
Interventions
Interventions:
*Risk Screen - Suicide Last Done: 09/05/25 09:40
*General Assessment Last Done: 09/05/25 09:40
*Neglect/Abuse Screening Last Done: 09/05/25 09:40
*ED COVID-19 Vaccine History Last Done: 09/05/25 09:40
*ED Influenza Vaccine History Last Done: 09/05/25 09:40
[facility] Fall Risk Assessment Tool Last Done: 09/05/25 12:08
ED- Cardiac Assessment Last Done: 09/05/25 12:09
ED- Neurological Assessment Last Done: 09/05/25 12:09
Discharge Date and Time
Print Language: MACEDONIAN
[2025-09-05 12:10] VITALS: BP 158/74
[2025-09-05 12:35] VITALS: BP 160/73; BP 168/79; BP 172/73; PULSE 70; PULSE 75; PULSE 83
[2025-09-05 13:18] VITALS: BP 159/66
[2025-09-05 14:08] VITALS: BP 132/65
== END 2025-09-05 14:40 | disposition home or self-care (01) ==
LOC: EMR 09:34
PROVIDERS: EMERGENCY PHYSICIAN Emergency Medicine; FAMILY PHYSICIAN Family Medicine
DX: R55 Syncope and collapse (principal); I45.10 Unspecified right bundle-branch block; I10 Essential (primary) hypertension; M81.0 Age-related osteoporosis without current pathological fracture
CPT/HCPCS: 99284; 80053; 84443; 85025; 93005